=== PATIENT | male | born 1960 | race Caucasian/White ===

== ENCOUNTER 2016-11-28 07:29 | Emergency (ER) | payer BC ==
[2016-11-28] MEDS ORDERED: DILAUDID 1 MG/ML AMP ONE (08:12)
== END 2016-11-28 11:24 | disposition home or self-care (01) ==
LOC: ER 07:29
DX: R10.12 Left upper quadrant pain (principal); Z79.899 Other long term (current) drug therapy; Z72.0 Tobacco use
CPT/HCPCS: 36415; 74176; 80053; 81001; 83690; 85025; 87088; 96374